=== PATIENT | male | born 1960 | race Caucasian/White ===

== ENCOUNTER → 2019-09-26 07:21 | Outpatient (CLI) | payer OTHER, SELFPAY ==
[2019-09-24 14:58] VITALS: BMI 25.2
--- NOTE | 2019-09-26 07:34 | EKG12_ITS ---
Test Reason : Blood Pressure : / mmHG Vent. Rate : 067 BPM Atrial Rate : 067 BPM P-R Int : 190 ms QRS Dur : 082 ms QT Int : 380 ms P-R-T Axes : 071 084 081 degrees QTc Int : 401 ms Normal sinus rhythm Normal ECG Confirmed by RADHA MARTINEZ [id number]), associate editor NINA LOMBARDO ([id number] on 09/28/2019 11:19:50 AM Referred By: Ralph Villa Confirmed By:RADHA MARTINEZ
[2019-09-26 08:36] LABS: Erythrocyte Sedimentation Rate 22 mm/hr (0-20)
[2019-09-26 08:59] LABS: AST(SGOT) 11 U/L (15-37); Alanine Aminotransfer ALT/SGPT 16 U/L (16-61); Albumin, Serum 4.2 g/dL (3.2-5.0); Alkaline Phosphatase 78 U/L (45-117); Anion Gap 5 (5-15); BUN 9 mg/dL (7-18); BUN/Creat Ratio 9.1 RATIO (10-20); Calcium,Total 9.2 mg/dL (8.5-10.1); Chloride 105 mmol/L (98-107); Cholesterol 190 mg/dL (200); Creatinine, Serum 0.99 mg/dL (0.70-1.30); EST Glomerular Filtration Rate 82 mL/min (>60); Est Glom Filt Rate - Afr Amer 99 mL/min (>60); Glucose 92 mg/dL (74-106); High Density Lipoprotein 39 mg/dL; Protein, Total 8.2 g/dL (6.4-8.2); Sodium Level 139 mmol/L (136-145); Triglycerides 74 mg/dL; Very Low Density Lipoprotein 15 mg/dL (5-40)
== END ==
PROVIDERS: Family Provider Family Medicine; PCP Family Medicine; Referring Provider Family Medicine; Visit Provider Family Medicine
DX: M19.90 Unspecified osteoarthritis, unspecified site (principal); Z82.49 Family history of ischemic heart disease and other diseases of the circulatory system
CPT/HCPCS: 36415; 80053; 80061; 85652; 93005